=== PATIENT | male | born 1985 | race Caucasian/White ===

== ENCOUNTER 2024-02-12 17:02 | Emergency (ER) | payer OTHER ==
[~2024-02-12] VITALS: Ht 170.2 cm; Wt 77.1 kg
[2024-02-12] MEDS: CYCLOBENZAPRINE HCL 10 MG TABLET PO ONE (18:09)
[2024-02-12] MEDS: ketOROlac 60 MG VIAL (30MG/ML) IM ONE (18:09)
[2024-02-12] MEDS: HYDROcodone/APAP 5/325 1 TAB TABLET PO ONE (19:10)
[2024-02-12] MEDS ORDERED: CYCL10TA16 PO (20:58)
[2024-02-12] MEDS ORDERED: IBUP-2070 PO (20:58)
[2024-02-12 21:11] VITALS: BP 130/70; PULSE 75; RESP 16; TEMP 98.5; O2SAT 99
== END 2024-02-12 21:22 | disposition home or self-care (01) ==
LOC: EDH 17:02
DX: S39.012A Strain of muscle, fascia and tendon of lower back, initial encounter (principal); X58.XXXA Exposure to other specified factors, initial encounter; Y93.89 Activity, other specified; Y92.89 Other specified places as the place of occurrence of the external cause; Y99.8 Other external cause status
CPT/HCPCS: 99283; 72100; 96372; J1885

== ENCOUNTER 2024-02-16 18:52 | Emergency (ER) | payer OTHER ==
[~2024-02-16] VITALS: Ht 170.2 cm; Wt 79.4 kg
[~2024-02-16 18:52] MED LIST: CYCL10TA16 PO; IBUP-2070 PO
[2024-02-16 20:45] LABS: BASOPHILS # (AUTO) 0.02 K/uL (0.00-0.20); BASOPHILS % (AUTO) 0.2 % (0.0-5.0); EOSINOPHILS # (AUTO) 0.03 K/uL (0.00-0.70); EOSINOPHILS % (AUTO) 0.3 % (0.0-8.0); HEMATOCRIT 42.6 % (42-54); IMMATURE GRANULOCYTE ABSOLUTE 0.03 K/uL (0-1); LYMPHOCYTES % (AUTO) 20.4 % (21.0-51.0); MEAN CORPUSCULAR HEMOGLOBIN 28.5 pg (27.0-33.0); MEAN CORPUSCULAR HGB CONC 33.1 g/dL (32.0-36.0); MEAN CORPUSCULAR VOLUME 86.1 fL (79-99); MONOCYTES # (AUTO) 0.5 K/uL (0.1-1.0); MONOCYTES % (AUTO) 4.7 % (3.0-13.0); NEUTROPHILS # (AUTO) 7.2 K/uL (1.8-7.7); NEUTROPHILS % (AUTO) 74.1 % (40.0-77.0); PLATELET COUNT (AUTO) 254 K/uL (130-400); RED BLOOD CELL COUNT(AUTO) 4.95 MIL/uL (4.50-6.20); RED CELL DISTRIBUTION WIDTH 12.2 % (11.0-15.5); WHITE BLOOD COUNT (AUTO) 9.7 K/uL (4.8-10.8)
[2024-02-16 20:55] LABS: POTASSIUM 3.8 mmol/L (3.5-5.1)
[2024-02-16 21:00] LABS: ALBUMIN 3.9 g/dL (3.5-5.0); BILIRUBIN,TOTAL 0.3 mg/dL (0.2-1.0); TOTAL PROTEIN, SERUM 7.4 g/dL (6.0-8.3)
[2024-02-16 21:11] VITALS: BP 115/61; PULSE 66; RESP 18; TEMP 97.9; O2SAT 98
== END 2024-02-16 21:26 | disposition home or self-care (01) ==
LOC: EDH 18:52
DX: K92.2 Gastrointestinal hemorrhage, unspecified (principal)
CPT/HCPCS: 36415; 80053; 85025